=== PATIENT | male | born 1955 | race American Indian/Alaskan Native ===

== ENCOUNTER 2017-04-12 23:44 | Emergency (ER) | payer MEDICARE ==
[2017-04-13 01:33] LABS: Albumin 4.1 g/dL (3.9-5); Albumin/Globulin Ratio 1.1 %; BUN/Creatinine Ratio 15.5; Bilirubin,Total 0.4 mg/dL (0.1-1.2); Calcium 9.8 mg/dL (8.4-10.2); Chloride 99.3 mmol/L (98-107); Potassium 4.3 mmol/L (3.6-5.0); Total Protein 7.8 g/dL (6.3-8.2)
[2017-04-13 01:47] LABS: Alanine Aminotransferase 12 units/L (7-56); Albumin 3.9 g/dL (3.9-5); Albumin/Globulin Ratio 0.9 %; Alkaline Phosphatase 55 units/L (35-129); Total Protein 8.1 g/dL (6.3-8.2)
[2017-04-13 01:51] LABS: Bilirubin,Direct < 0.2 mg/dL (0-0.2); Bilirubin,Indirect 0.2 mg/dL
[2017-04-13] MEDS ORDERED: ATIVAN IV ONE (01:55)
[2017-04-13 02:06] LABS: Basophils % (Auto) 0.9 % (0.0-1.8); Eosinophils % (Auto) 3.6 % (0.0-4.3); Hematocrit 32.6 % (35.5-45.6); Hemoglobin 10.8 gm/dl (11.8-15.2); Mean Corpuscular HGB Conc 33 % (32-34); Mean Corpuscular Hemoglobin 29 pg (28-32); Mean Corpuscular Volume 89 fl (84-94); Platelet Count 620 K/mm3 (140-440); Red Blood Count 3.66 M/mm3 (3.65-5.03); Red Cell Distribution Width 12.1 % (13.2-15.2); White Blood Count 11.3 K/mm3 (4.5-11.0)
--- NOTE | 2017-04-13 03:17 | Cat Scan Report ---
FINAL REPORT PROCEDURE: CT HEAD/BRAIN WO CON TECHNIQUE: Computerized tomography of the head was performed without contrast material. HISTORY: Altered Mental Status COMPARISON: No prior studies are available for comparison. FINDINGS: There is diffuse subcortical white matter low density in the right hemisphere. There are serpiginous cortical densities in the right hemisphere involving the frontal, temporal, parietal and occipital lobes. Findings suggest possibility of ischemic infarction with laminar necrosis and subarachnoid hemorrhage or possibly posttraumatic subarachnoid hemorrhage and edema. Other possibilities include meningitis with radiographically dense exam date. There is no subdural or epidural hematoma. There is mass effect with effacement of the cortical sulci and shift of the septum pellucidum 4 millimeters to the left. There is no evidence of subfalcine or descending transtentorial herniation. The left hemisphere is otherwise unremarkable. The brainstem, swapna and cerebellum are unremarkable. Bony calvarium is intact. Paranasal sinuses are clear. IMPRESSION: Right hemispheric edema and cortical/subarachnoid density as described above. Differential considerations include: 1. Trauma related subarachnoid hemorrhage and cerebral edema. 2. Ischemic infarction with laminar necrosis and post infarct hemorrhagic transformation. 3. Meningitis and encephalitis with proteinaceous or hemorrhagic exudate. Further evaluation with contrast-enhanced MRI may be helpful. There is mass effect as described. There is no herniation. Dr. De Los Santos was notified by telephone at 3:13 a.m. [place]
--- NOTE | 2017-04-13 03:38 | Emergency Department Report ---
ED Altered Mental Status HPI - General Chief Complaint: Altered Mental Status Stated Complaint: AMS Time Seen by Provider: 04/13/17 01:55 Source: EMS Mode of arrival: Stretcher Limitations: Altered Mental Status - History of Present Illness Initial Comments: 61-year-old male with a past medical history of hyperlipidemia, type 2 diabetes , CVA with residual left-sided hemiplegia, dysphagia, and is order of the prostate unspecified presents to the hospital complaints of altered mental status from [facility]. Patient unable to provide any history of present illness. Patient is belligerent and intermittently combative. He does calm down to answer questions but the answers not completely appropriate. Patient states year is 2014. Patient is to complain of back pain to stay he does not have back pain. Patient states he is here to go to rehabilitation. Patient has really no idea as to why he is here today and denies any persistence physical complaints. - Related Data Home Medications Medication Instructions Recorded Confirmed Last Taken Aspirin [Aspirin BABY CHEW TAB] 81 mg PO QDAY 04/13/17 04/13/17 04/12/17 AtorvaSTATin [Lipitor] 10 mg PO DAILY 04/13/17 04/13/17 04/12/17 Clopidogrel Bisulfate [Plavix] 75 mg PO DAILY 04/13/17 04/13/17 04/12/17 Insulin NPH, Human [NovoLIN N] 100 unit SQ DAILY 04/13/17 04/13/17 04/12/17 Lisinopril [Zestril] 20 mg PO QDAY 04/13/17 04/13/17 04/12/17 Methylphenidate [Ritalin] 5 mg PO BID 04/13/17 04/13/17 04/12/17 Nystatin [Nystatin SUSP] 5 ml PO QID 04/13/17 04/13/17 04/12/17 Pantoprazole [Protonix] 40 mg PO QDAY 04/13/17 04/13/17 04/12/17 Tamsulosin [Flomax] 0.4 mg PO QDAY 04/13/17 04/13/17 04/12/17 amLODIPine [Norvasc] 5 mg PO DAILY 04/13/17 04/13/17 04/12/17 Allergies Allergy/AdvReac Type Severity Reaction Status Date / Time No Known Allergies Allergy Unverified 04/13/17 00:53 ED Review of Systems ROS: Stated complaint: AMS Other details as noted in HPI Comment: Unobtainable due to pts medical conditions ED Past Medical Hx - Past Medical History Hx Hypertension: Yes Hx CVA: Yes Hx Diabetes: Yes Additional medical history: pt is altered at this time unable to answer. per [place] paperwork pt has hyperlipidemi, acid reflux, insomnia, prostate disorder - Surgical History Additional Surgical History: pt is altered at this time unable to answer - Social History Smoking Status: Unknown if ever smoked - Medications Home Medications: Home Medications Medication Instructions Recorded Confirmed Last Taken Type Aspirin [Aspirin BABY CHEW TAB] 81 mg PO QDAY 04/13/17 04/13/17 04/12/17 History AtorvaSTATin [Lipitor] 10 mg PO DAILY 04/13/17 04/13/17 04/12/17 History Clopidogrel Bisulfate [Plavix] 75 mg PO DAILY 04/13/17 04/13/17 04/12/17 History Insulin NPH, Human [NovoLIN N] 100 unit SQ DAILY 04/13/17 04/13/17 04/12/17 History Lisinopril [Zestril] 20 mg PO QDAY 04/13/17 04/13/17 04/12/17 History Methylphenidate [Ritalin] 5 mg PO BID 04/13/17 04/13/17 04/12/17 History Nystatin [Nystatin SUSP] 5 ml PO QID 04/13/17 04/13/17 04/12/17 History Pantoprazole [Protonix] 40 mg PO QDAY 04/13/17 04/13/17 04/12/17 History Tamsulosin [Flomax] 0.4 mg PO QDAY 04/13/17 04/13/17 04/12/17 History amLODIPine [Norvasc] 5 mg PO DAILY 04/13/17 04/13/17 04/12/17 History ED Physical Exam - General Limitations: Altered Mental Status - Other Other exam information: General: Patient is alert Head exam: Atraumatic, normocephalic Eyes exam: Normal appearance ENT: Moist mucous membrane, normal oropharynx Neck exam: Normal inspection, full range of motion, no meningismus nontender Respiratory exam: Clear to auscultation bilateral, no wheezes, rales, crackles Cardiovascular: Regular rate and rhythm Abdomen: Soft, nondistended, and nontender, with normal bowel sounds, no rebound, or guarding Extremity: Full range of motion normal inspection no deformity Back: Normal Inspection, full range of motion, no tenderness Neurologic: Alert, oriented to self, no facial droop, speech clear, left-sided arm weakness with limited movement. 5/5 right upper, right lower, and left lower strength while supine in the bed. Did not ambulate patient. GCS 15 Psychiatric: Patient agitated Skin: Warm, dry, intact ED Course Vital Signs 04/13/17 04/13/17 04/13/17 00:38 00:41 00:47 Temperature 97.8 F Pulse Rate 93 H 87 92 H Respiratory 16 15 20 Rate Blood Pressure 145/84 145/84 Blood Pressure [Left] O2 Sat by Pulse 98 98 98 Oximetry 04/13/17 04/13/17 04/13/17 00:51 00:53 01:01 Temperature 97.8 F Pulse Rate 92 H 92 H Respiratory 21 20 Rate Blood Pressure 131/85 138/86 Blood Pressure 145/84 [Left] O2 Sat by Pulse 99 98 99 Oximetry 04/13/17 04/13/17 04/13/17 01:11 01:21 01:30 Temperature Pulse Rate 92 H 89 84 Respiratory 17 14 Rate Blood Pressure 138/86 120/63 130/59 Blood Pressure [Left] O2 Sat by Pulse 99 99 99 Oximetry 04/13/17 04/13/17 04/13/17 01:41 01:51 02:00 Temperature Pulse Rate 80 96 H 85 Respiratory 16 17 15 Rate Blood Pressure 130/59 110/52 128/71 Blood Pressure [Left] O2 Sat by Pulse 98 100 98 Oximetry 04/13/17 04/13/17 04/13/17 02:11 02:33 02:41 Temperature Pulse Rate 80 95 H Respiratory 16 12 Rate Blood Pressure 128/71 128/71 125/75 Blood Pressure [Left] O2 Sat by Pulse 98 99 97 Oximetry 04/13/17 04/13/17 04/13/17 02:51 03:00 03:11 Temperature Pulse Rate 86 87 Respiratory 13 16 15 Rate Blood Pressure 115/57 117/63 117/63 Blood Pressure [Left] O2 Sat by Pulse 98 97 98 Oximetry 04/13/17 04/13/17 04/13/17 03:17 03:21 03:31 Temperature Pulse Rate 92 H Respiratory 20 13 Rate Blood Pressure 128/71 130/74 Blood Pressure 145/84 [Left] O2 Sat by Pulse 98 96 96 Oximetry - Reevaluation(s) Reevaluation #1: 04/13/17 04:02 Patient requires transfer to a facility with neurosurgery given intracerebral hemorrhage findings. Ativan was given in ED prior to CT head in order to obtain the study - Consultations Consultation #1: 04/13/17 03:[address] Armenta at [facility], trauma attending - Lab Data Result diagrams: 04/13/17 00:50 04/13/17 00:50 Lab Results 04/13/17 04/13/17 04/13/17 Range/Units 00:50 00:50 00:50 WBC 11.3 H (4.5-11.0) K/mm3 RBC 3.66 (3.65-5.03) M/mm3 Hgb 10.8 L (11.8-15.2) gm/dl Hct 32.6 L (35.5-45.6) % MCV 89 (84-94) fl MCH 29 (28-32) pg MCHC 33 (32-34) % RDW 12.1 L (13.2-15.2) % Plt Count 620 H (140-440) K/mm3 Lymph % (Auto) 22.5 (13.4-35.0) % [place] % (Auto) 8.7 H (0.0-7.3) % Eos % (Auto) 3.6 (0.0-4.3) % Baso % (Auto) 0.9 (0.0-1.8) % Lymph # 2.5 (1.2-5.4) K/mm3 [place] # 1.0 H (0.0-0.8) K/mm3 Eos # 0.4 (0.0-0.4) K/mm3 Baso # 0.1 (0.0-0.1) K/mm3 Seg Neutrophils % 64.3 (40.0-70.0) % Seg Neutrophils # 7.3 (1.8-7.7) K/mm3 Sodium 138 (137-145) mmol/L Potassium 4.3 (3.6-5.0) mmol/L Chloride 99.3 (98-107) mmol/L Carbon Dioxide 22 (22-30) mmol/L Anion Gap 21 mmol/L BUN 31 H (9-20) mg/dL Creatinine 2.0 H (0.8-1.5) mg/dL Estimated GFR 41 ml/min BUN/Creatinine Ratio 15.50 % Glucose 144 H (75-100) mg/dL Lactic Acid 1.00 (0.7-2.0) mmol/L Calcium 9.8 (8.4-10.2) mg/dL Magnesium (1.7-2.3) mg/dL Total Bilirubin 0.40 (0.1-1.2) mg/dL Direct Bilirubin (0-0.2) mg/dL Indirect Bilirubin mg/dL AST 19 (5-40) units/L ALT 12 (7-56) units/L Alkaline Phosphatase 55 (35-129) units/L Ammonia (25-60) umol/L Total Protein 7.8 (6.3-8.2) g/dL Albumin 4.1 (3.9-5) g/dL Albumin/Globulin Ratio 1.1 % TSH (0.270-4.200) mlU/mL Free T4 (0.76-1.46) ng/dL 04/13/17 04/13/17 04/13/17 Range/Units 01:14 01:14 01:14 WBC (4.5-11.0) K/mm3 RBC (3.65-5.03) M/mm3 Hgb (11.8-15.2) gm/dl Hct (35.5-45.6) % MCV (84-94) fl MCH (28-32) pg MCHC (32-34) % RDW (13.2-15.2) % Plt Count (140-440) K/mm3 Lymph % (Auto) (13.4-35.0) % [place] % (Auto) (0.0-7.3) % Eos % (Auto) (0.0-4.3) % Baso % (Auto) (0.0-1.8) % Lymph # (1.2-5.4) K/mm3 [place] # (0.0-0.8) K/mm3 Eos # (0.0-0.4) K/mm3 Baso # (0.0-0.1) K/mm3 Seg Neutrophils % (40.0-70.0) % Seg Neutrophils # (1.8-7.7) K/mm3 Sodium (137-145) mmol/L Potassium (3.6-5.0) mmol/L Chloride (98-107) mmol/L Carbon Dioxide (22-30) mmol/L Anion Gap mmol/L BUN (9-20) mg/dL Creatinine (0.8-1.5) mg/dL Estimated GFR ml/min BUN/Creatinine Ratio % Glucose (75-100) mg/dL Lactic Acid (0.7-2.0) mmol/L Calcium (8.4-10.2) mg/dL Magnesium 2.00 (1.7-2.3) mg/dL Total Bilirubin 0.40 (0.1-1.2) mg/dL Direct Bilirubin < 0.2 (0-0.2) mg/dL Indirect Bilirubin 0.2 mg/dL AST 18 (5-40) units/L ALT 12 (7-56) units/L Alkaline Phosphatase 55 (35-129) units/L Ammonia 47.0 (25-60) umol/L Total Protein 8.1 (6.3-8.2) g/dL Albumin 3.9 (3.9-5) g/dL Albumin/Globulin Ratio 0.9 % TSH 2.190 (0.270-4.200) mlU/mL Free T4 1.46 (0.76-1.46) ng/dL - EKG Data -: EKG Interpreted by Ok - Radiology Data Radiology results: report reviewed CT head noncontrast: Possibility of ischemic infarction with laminar necrosis and subarachnoid hemorrhage or possibility of posttraumatic subarachnoid hemorrhage and edema. Also possibility of meningitis and encephalitis with proteinaceous or hemorrhagic exudate. Positive cerebral edema. Positive shift 4 mm to the left. - Medical Decision Making Patient is more drowsy after receiving Ativan prior to CT but still arouses to tactile stimulation and will follow commands. CT report suggest possible trauma. Patient does not have any external signs of head injury. No trauma reported by snf. Patient is on aspirin and Plavix but not any other anticoagulates. At this time cause of hemorrhage is unclear. Patient be transferred to [facility] for further management since they assessed the capabilities of treating trauma patients as well as hemorrhagic strokes. - Differential Diagnosis UTI, encephalopathy, dementia, intracranial hemorrhage Critical Care Time: No Critical care attestation.: If time is entered above; I have spent that time in minutes in the direct care of this critically ill patient, excluding procedure time. ED Disposition Clinical Impression: Altered mental status, Hemiparesis affecting left side as late effect of stroke , Subarachnoid hemorrhage, Cerebral edema, Left shift, Renal insufficiency Disposition: DC/TX ANOTHER TYPE HEALTHCARE Is pt being admited?: No Condition: Stable Time of Disposition: 03:37 (Dr Armenta/trauma attending)
[2017-04-13 03:46] VITALS: BP 130/74
[2017-04-13 04:30] LABS: INR 1.1 (0.87-1.13); Partial Thromboplastin Time 31.7 Sec. (24.2-36.6)
== END 2017-04-13 04:24 | disposition other institution (70) ==
LOC: ED 23:44
DX: I69.954 Hemiplegia and hemiparesis following unspecified cerebrovascular disease affecting left non-dominant side (principal); I60.9 Nontraumatic subarachnoid hemorrhage, unspecified; G93.6 Cerebral edema; N28.9 Disorder of kidney and ureter, unspecified; I10 Essential (primary) hypertension; E11.9 Type 2 diabetes mellitus without complications
CPT/HCPCS: 36415; 70450; 80053; 80074; 82140; 83735; 84439; 84443; 85025; 85610; 85730; 86850; 86900; 86901; 93005; 93010; 96374; 99285; J2060